=== PATIENT | female | born 1965 | race Caucasian/White ===

== ENCOUNTER 2017-09-05 06:28 | Inpatient (IN) ==
--- NOTE | 2017-09-05 07:17 | Emergency Department Note ---
Disposition Clinical Impression: Anxiety Disposition: Admitted As Inpatient Condition: Fair Referrals: Crescencio Fairbanks MD [Primary Care Provider] - Psych HPI - General Chief Complaint: ED Psychiatric Symptoms Stated Complaint: Anxiety Time Seen by Provider: 09/05/17 06:43 Source: patient Mode of arrival: private vehicle Limitations: no limitations Nursing Notes Reviewed: Yes Vital Signs Reviewed: Yes - History of Present Illness Pt complaint: anxiety, other ("Feeling desperate") Onset (ago): week(s) Duration: constant, getting worse History of similar episodes: Yes Improves with: medication (neurontin) Worsens with: none Context: other (patient feels that neurontin helps with her anxiety. She self d/ c'd this med a few weeks ago and is having "panic attacks".) Alleged intoxication: No Associated Psychiatric Symptoms: suicidal ideation, anxiety Associated symptoms: Reports: insomnia, other (anorexia). Denies: confusion, headache, shortness of breath, nausea, vomiting, syncope Traumatic symptoms: denies traumatic injury Treatments prior to arrival: none Self harm or harm to others: admits thoughts of self harm (Patient states "I feel desperate and I just want it to be over" when asked if she has any thoughts of hurting herself.), denies having a plan - Related Data Allergies Allergy/AdvReac Type Severity Reaction Status Date / Time No Known Allergies Allergy Verified 09/05/17 06:39 All systems ED: reviewed and negative except as stated. Review of Systems: As Per HPI Constitutional: Denies: fever, chills, weakness Eyes: Denies: eye pain, eye discharge, vision change Cardiovascular: Denies: chest pain, palpitations Respiratory: Denies: dyspnea Gastrointestinal: Denies: abdominal pain, nausea, vomiting Neurological: Denies: headache, weakness, confusion Psychiatric: Reports: as per HPI, anxiety Past Medical History - Past Medical History Attestation: Yes The following information was validated with the patient. Source: patient, nursing notes reviewed Medical history: Reports: no medical history Psychiatric history: Reports: anxiety, panic disorder - Social History Smoking Status: Current every day smoker Alcohol use: Reports: none Drug use: Reports: none Physical Exam - General Limitations: no limitations General appearance: alert, anxious, in distress - Head Head exam: atraumatic, normocephalic, normal inspection - Eye Eye exam: Present: normal appearance, PERRL. Absent: scleral icterus, conjunctival injection, periorbital swelling - ENT ENT exam: normal exam, normal oropharynx, mucous membranes moist - Neck Neck exam: Present: normal inspection, full ROM, trachea midline. Absent: meningismus - Chest Chest inspection: Present: normal inspection, symmetric chest wall rise - Respiratory Respiratory exam: Present: normal lung sounds bilaterally. Absent: respiratory distress - Cardiovascular Cardiovascular exam: Present: regular rate, normal rhythm, normal heart sounds - Extremities Exam Extremities exam: Present: normal inspection - Neurological Exam Neurological exam: Present: alert, oriented X3, CN II-XII intact, normal gait - Psychiatric Psychiatric exam: Present: normal affect, anxious - Skin Skin exam: Present: warm, dry, intact, normal color Course Course Narrative: Patient presents for evaluation of anxiety and panic attack. She has a history of anxiety since she was very young. She does not currently see a psychiatrist or mental health counselor. She states that she has been prescribed Neurontin and that it has helped with her anxiety. She describes an event where she was arrested for impaired driving and this impairment was attributed to Neurontin. She feels that she was labeled a "drug addict." She stopped taking the Neurontin around Nena time. She has had worsening anxiety since then. She describes having numerous panic attacks over the past two weeks. She also describes symptoms concerning for depression such as insomnia, anorexia, lack of attention to hygiene, and inability to go to work. When asked if she has had thoughts of hurting herself or others. She states that she would not hurt anyone else. When asked again if she has thoughts of hurting herself. She states, "I just wanted to be over and I am desperate." At this point, suicide precautions were implemented. Patient was admitted to room eight. Labs have been ordered. Patient currently appears to be stable with normal vitals. There was a significant delay in lab results. Per lab, this was due to the new equipment in the lab. Once the results were available, 1A was consulted. They had to call a nurse in from home. Patient was evaluated by the one a nurse. The nurse consulted with the psychiatrist. They recommend that the patient be sent home with outpatient psychiatric services resources a prescription for Zoloft 50 mg daily and a prescription for hydroxyzine 25 mg 3 times a day when necessary. These prescriptions have been provided. Just prior to discharge. Patient told the nurse that she was afraid to go home because her was going to be very angry with her. Social work was involved. drum worker evaluated the patient and has contacted the patient advocate for assistance. Pending resolution of this potential conflict, patient will be discharged to home as previously recommended by one a psychiatrist. Vital Signs Temperature 97.5 F L 09/05/17 06:36 Pulse Rate 94 09/05/17 06:36 Respiratory Rate 20 09/05/17 06:36 Blood Pressure 138/68 09/05/17 06:36 O2 Sat by Pulse Oximetry 99 09/05/17 06:36 Temperature 98.5 F 09/05/17 11:53 Pulse Rate 132 09/05/17 11:53 Respiratory Rate 22 09/05/17 11:53 Blood Pressure 124/61 09/05/17 11:53 O2 Sat by Pulse Oximetry 96 09/05/17 11:53 Oxygen Delivery Oxygen Delivery Room Air Psych - Lab Data Lab results reviewed: Yes I reviewed the patient's lab results. Lab results narrative: Laboratory Last Values WBC 9.7 K/mcL (4.3-11.1) 09/05/17 07:45 RBC 4.91 M/mcL (3.82-4.97) 09/05/17 07:45 Hgb 14.7 g/dL (11.5-15.4) 09/05/17 07:45 Hct 44.0 % (35.3-44.9) 09/05/17 07:45 MCV 89.6 fL (83.0-100.0) 09/05/17 07:45 MCH 29.9 pg (28.0-33.3) 09/05/17 07:45 MCHC 33.4 g/dL (31.6-35.5) 09/05/17 07:45 RDW 12.9 % (11.5-14.5) 09/05/17 07:45 Plt Count 349 K/mcL (140-400) 09/05/17 07:45 MPV 10.3 fL (9.4-12.4) 09/05/17 07:45 Immature Gran % 0.3 % (0-4) 09/05/17 07:45 Seg Neutrophils % 74.5 % 09/05/17 07:45 Lymphocytes % 20.0 % 09/05/17 07:45 Monocytes % 4.2 % 09/05/17 07:45 Eosinophils % 0.4 % 09/05/17 07:45 Basophils % 0.6 % 09/05/17 07:45 Neutrophils # 7.2 K/mcL (1.6-8.9) 09/05/17 07:45 Lymphocytes # 1.9 K/mcL (0.6-4.6) 09/05/17 07:45 Monocytes # 0.4 K/mcL (0.0-1.3) 09/05/17 07:45 Eosinophils # 0.0 K/mcL (0.0-0.6) 09/05/17 07:45 Basophils # 0.1 K/mcL (0.0-0.2) 09/05/17 07:45 Sodium 138 mEq/L (136-145) 09/05/17 07:45 Potassium 3.7 mEq/L (3.5-5.1) 09/05/17 07:45 Chloride 105 mEq/L (98-107) 09/05/17 07:45 Carbon Dioxide 21 mEq/L (23-29) L 09/05/17 07:45 BUN 11 mg/dL (6-20) 09/05/17 07:45 Creatinine 0.65 mg/dL (0.60-1.20) 09/05/17 07:45 Est GFR ( Amer) > 60 (> 60) 09/05/17 07:45 Est GFR (Non-Af Amer) > 60 (> 60) 09/05/17 07:45 BUN/Creatinine Ratio 17 (6-26) 09/05/17 07:45 Glucose 94 mg/dL (70-105) 09/05/17 07:45 Calculated Osmolality 285 (280-300) 09/05/17 07:45 Calcium 9.3 mg/dL (8.6-10.3) 09/05/17 07:45 TSH 1.037 mcIU/mL (0.340-5.600) 09/05/17 07:45 Urine Color Yellow (Yellow) 09/05/17 07:35 Urine Clarity Clear (Clear) 09/05/17 07:35 Urine pH 6.0 pH Units (5.0-8.0) 09/05/17 07:35 Ur Specific [place] 1.022 (1.010-1.025) 09/05/17 07:35 Urine Protein Negative mg/dL (Neg-Trace) 09/05/17 07:35 Urine Glucose (UA) Normal mg/dL (Normal) 09/05/17 07:35 Urine Ketones 15 mg/dL (Negative) H 09/05/17 07:35 Urine Blood Negative (Negative) 09/05/17 07:35 Urine Nitrite Negative (Negative) 09/05/17 07:35 Urine Bilirubin Negative (Negative) 09/05/17 07:35 Urine Urobilinogen Normal mg/dL (Normal) 09/05/17 07:35 Ur Leukocyte Esterase Negative (Negative) 09/05/17 07:35 Salicylates < 5.0 mg/dL (15.0-30.0) L 09/05/17 07:45 Urine Opiates Screen Negative ng/mL (Uorqsi=705) 09/05/17 07:35 Acetaminophen < 1.0 mcg/mL (10-30) L 09/05/17 07:45 Ur Barbiturates Screen Negative ng/mL (Hmoyqy=743) 09/05/17 07:35 Ur Phencyclidine Scrn Negative ng/mL (Cutoff=25) 09/05/17 07:35 Ur Amphetamines Screen Negative ng/mL (Ndnwfc=0011) 09/05/17 07:35 U Benzodiazepines Scrn Negative ng/mL (Buaide=598) 09/05/17 07:35 Urine Cocaine Screen Negative ng/mL (Cutoff= 300) 09/05/17 07:35 U Marijuana (THC) Screen Positive ng/mL (Cutoff = 50) H 09/05/17 07:35 Ethyl Alcohol < 10 mg/dL (0-10) 09/05/17 07:45 Result diagrams: 09/05/17 07:45 09/05/17 07:45 Lab Results 09/05/17 09/05/17 09/05/17 Range/Units 07:35 07:35 07:45 WBC 9.7 (4.3-11.1) K/mcL RBC 4.91 (3.82-4.97) M/mcL Hgb 14.7 (11.5-15.4) g/dL Hct 44.0 (35.3-44.9) % MCV 89.6 (83.0-100.0) fL MCH 29.9 (28.0-33.3) pg MCHC 33.4 (31.6-35.5) g/dL RDW 12.9 (11.5-14.5) % Plt Count 349 (140-400) K/mcL MPV 10.3 (9.4-12.4) fL Immature Gran % 0.3 (0-4) % Seg Neutrophils % 74.5 % Lymphocytes % 20.0 % Monocytes % 4.2 % Eosinophils % 0.4 % Basophils % 0.6 % Neutrophils # 7.2 (1.6-8.9) K/mcL Lymphocytes # 1.9 (0.6-4.6) K/mcL Monocytes # 0.4 (0.0-1.3) K/mcL Eosinophils # 0.0 (0.0-0.6) K/mcL Basophils # 0.1 (0.0-0.2) K/mcL Sodium (136-145) mEq/L Potassium (3.5-5.1) mEq/L Chloride (98-107) mEq/L Carbon Dioxide (23-29) mEq/L BUN (6-20) mg/dL Creatinine (0.60-1.20) mg/dL Est GFR ( Amer) (> 60) Est GFR (Non-Af Amer) (> 60) BUN/Creatinine Ratio (6-26) Glucose (70-105) mg/dL Calculated Osmolality (280-300) Calcium (8.6-10.3) mg/dL TSH (0.340-5.600) mcIU/mL Urine Color Yellow (Yellow) Urine Clarity Clear (Clear) Urine pH 6.0 (5.0-8.0) pH Units Ur Specific [place] 1.022 (1.010-1.025) Urine Protein Negative (Neg-Trace) mg/dL Urine Glucose (UA) Normal (Normal) mg/dL Urine Ketones 15 H (Negative) mg/dL Urine Blood Negative (Negative) Urine Nitrite Negative (Negative) Urine Bilirubin Negative (Negative) Urine Urobilinogen Normal (Normal) mg/dL Ur Leukocyte Esterase Negative (Negative) Salicylates (15.0-30.0) mg/dL Urine Opiates Screen Negative (Ycijde=955) ng/mL Acetaminophen (10-30) mcg/mL Ur Barbiturates Screen Negative (Xwmery=280) ng/mL Ur Phencyclidine Scrn Negative (Cutoff=25) ng/mL Ur Amphetamines Screen Negative (Mrozwi=5582) ng/mL U Benzodiazepines Scrn Negative (Mdzfae=136) ng/mL Urine Cocaine Screen Negative (Cutoff= 300) ng/mL U Marijuana (THC) Screen Positive H (Cutoff = 50) ng/mL Ethyl Alcohol (0-10) mg/dL 09/05/17 Range/Units 07:45 WBC (4.3-11.1) K/mcL RBC (3.82-4.97) M/mcL Hgb (11.5-15.4) g/dL Hct (35.3-44.9) % MCV (83.0-100.0) fL MCH (28.0-33.3) pg MCHC (31.6-35.5) g/dL RDW (11.5-14.5) % Plt Count (140-400) K/mcL MPV (9.4-12.4) fL Immature Gran % (0-4) % Seg Neutrophils % % Lymphocytes % % Monocytes % % Eosinophils % % Basophils % % Neutrophils # (1.6-8.9) K/mcL Lymphocytes # (0.6-4.6) K/mcL Monocytes # (0.0-1.3) K/mcL Eosinophils # (0.0-0.6) K/mcL Basophils # (0.0-0.2) K/mcL Sodium 138 (136-145) mEq/L Potassium 3.7 (3.5-5.1) mEq/L Chloride 105 (98-107) mEq/L Carbon Dioxide 21 L (23-29) mEq/L BUN 11 (6-20) mg/dL Creatinine 0.65 (0.60-1.20) mg/dL Est GFR ( Amer) > 60 (> 60) Est GFR (Non-Af Amer) > 60 (> 60) BUN/Creatinine Ratio 17 (6-26) Glucose 94 (70-105) mg/dL Calculated Osmolality 285 (280-300) Calcium 9.3 (8.6-10.3) mg/dL TSH 1.037 (0.340-5.600) mcIU/mL Urine Color (Yellow) Urine Clarity (Clear) Urine pH (5.0-8.0) pH Units Ur Specific [place] (1.010-1.025) Urine Protein (Neg-Trace) mg/dL Urine Glucose (UA) (Normal) mg/dL Urine Ketones (Negative) mg/dL Urine Blood (Negative) Urine Nitrite (Negative) Urine Bilirubin (Negative) Urine Urobilinogen (Normal) mg/dL Ur Leukocyte Esterase (Negative) Salicylates < 5.0 L (15.0-30.0) mg/dL Urine Opiates Screen (Dkzbhc=186) ng/mL Acetaminophen < 1.0 L (10-30) mcg/mL Ur Barbiturates Screen (Szhqon=064) ng/mL Ur Phencyclidine Scrn (Cutoff=25) ng/mL Ur Amphetamines Screen (Hdrjlv=0264) ng/mL U Benzodiazepines Scrn (Cnpxhp=446) ng/mL Urine Cocaine Screen (Cutoff= 300) ng/mL U Marijuana (THC) Screen (Cutoff = 50) ng/mL Ethyl Alcohol < 10 (0-10) mg/dL Psychiatric Medical Clearance - Medical Clearance Checklist Does the patient have a NEW psychiatric condition?: No Any abnormalities indicating possible medical illness?: No Any history of medical issues?: No Medical History: Anxiety (Acute) No Social History Section defined Any abnormal vital signs prior to transfer?: No Current Vitals: Last Vital Signs Temp 98.5 F 09/05/17 11:53 Pulse 132 09/05/17 11:53 Resp 22 09/05/17 11:53 BP 124/61 09/05/17 11:53 Pulse Ox 96 09/05/17 11:53 Is the patient intoxicated or cognitively impaired?: No Psychiatric Lab Panel: Drug Levels and Toxicity 09/05/17 09/05/17 07:35 07:45 Urine Opiates Screen Negative Acetaminophen < 1.0 L Ur Barbiturates Screen Negative Ur Phencyclidine Scrn Negative Ur Amphetamines Screen Negative U Benzodiazepines Scrn Negative Urine Cocaine Screen Negative U Marijuana (THC) Screen Positive H Ethyl Alcohol < 10 Any abnormalities on the physical exam?: No Any abnormal labs?: No Abnormal Labs: Abnormal lab results Carbon Dioxide 21 mEq/L (23-29) L 09/05/17 07:45 Urine Ketones 15 mg/dL (Negative) H 09/05/17 07:35 Salicylates < 5.0 mg/dL (15.0-30.0) L 09/05/17 07:45 Acetaminophen < 1.0 mcg/mL (10-30) L 09/05/17 07:45 U Marijuana (THC) Screen Positive ng/mL (Cutoff = 50) H 09/05/17 07:35 Does the patient require durable medical equiptment?: No Is the patient ambulatory?: Yes Is the patient a fall risk?: No Has the patient been medically cleared?: Yes Any acute medical condition require Tx prior to transfer?: No Statement of Medical Clearance: I have evaluated the patient, reviewed diagnostic information, and certify that the patient's medical condition is sufficiently stable that transfer to the psychiatric unit does not pose a significant risk of deterioration. Attestation Statement - Attestation Attestation: I, Ramakrishna Gray DO have provided [id number] time during the care of this patient. Detailed review the presentation, symptoms, medical history were discussed and reviewed with the mid-level provider Nataliya Michele PA-C/[employer] OPERATOR. Medical intervention labs and imaging studies were reviewed in detail. See full documentation of physical exam and course of care in the mid-level provider 's note. I agree with the determined course of care, medical intervention and disposition put forth by the mid-level provider. See below documentation for changes or alterations in documentation. . 52-year-old female presents to emergency room for evaluation of anxiety. Patient was seen and evaluated and medically cleared by the mid-level provider. Psychiatric team evaluated and recommended admission at this time. Patient has no other concerning findings on laboratory workup her physical exam. Patient will be admitted for evaluation. My only involvement was with the admission process of this patient. See detailed documentation of the physical exam, medical intervention, medical decision-making and disposition in the mid- level provider's note
[2017-09-05 07:47] LABS: Bilirubin,Urine Negative (Negative); Blood,Urine Negative (Negative); Clarity,Urine Clear (Clear); Color,Urine Yellow (Yellow); Glucose,Urine (UA) Normal (Normal); Ketones,Urine 15 mg/dL (Negative); Leukocyte Esterase,Urine Negative (Negative); Nitrite,Urine Negative (Negative); Protein,Urine Negative (Neg-Trace); Specific Gravity,Urine 1.022 (1.010-1.025); Urobilinogen,Urine Normal (Normal)
[2017-09-05 07:51] LABS: Amphetamine Screen,Urine Negative ng/mL (Cutoff=1000); Barbiturate Screen,Urine Negative ng/mL (Cutoff=200); Benzodiazepines Screen,Urine Negative ng/mL (Cutoff=200); Cannabinoid Screen,Urine Positive ng/mL (Cutoff = 50); Cocaine Screen,Urine Negative ng/mL (Cutoff= 300); Opiate Screen,Urine Negative ng/mL (Cutoff=300); Phencyclidine Screen,Urine Negative ng/mL (Cutoff=25)
[2017-09-05 07:55] LABS: Basophils # 0.1 K/mcL (0.0-0.2); Basophils % 0.6 %; Eosinophils % 0.4 %; Hemoglobin 14.7 g/dL (11.5-15.4); Immature Granulocytes % 0.3 % (0-4); Lymphocytes # 1.9 K/mcL (0.6-4.6); Mean Corpuscular HGB Conc 33.4 g/dL (31.6-35.5); Mean Corpuscular Hemoglobin 29.9 pg (28.0-33.3); Mean Corpuscular Volume 89.6 fL (83.0-100.0); Mean Platelet Volume 10.3 fL (9.4-12.4); Monocytes # 0.4 K/mcL (0.0-1.3); Monocytes % 4.2 %; Neutrophils # 7.2 K/mcL (1.6-8.9); Platelet Count 349 K/mcL (140-400); Red Blood Count 4.91 M/mcL (3.82-4.97); Red Cell Distribution Width 12.9 % (11.5-14.5); Segmented Neutrophils % 74.5 %
[2017-09-05 08:26] LABS: Thyroid Stimulating Hormone 1.037 mcIU/mL (0.340-5.600)
[2017-09-05 08:31] LABS: Acetaminophen < 1.0 mcg/mL (10-30); Ethanol < 10 mg/dL (0-10); Salicylate < 5.0 mg/dL (15.0-30.0)
[2017-09-05 08:40] LABS: BUN/Creatinine Ratio 17 (6-26); Blood Urea Nitrogen 11 mg/dL (6-20); Calcium 9.3 mg/dL (8.6-10.3); Carbon Dioxide 21 mEq/L (23-29); Chloride 105 mEq/L (98-107); Glucose 94 mg/dL (70-105); Osmolality,Calculated 285 (280-300); Potassium 3.7 mEq/L (3.5-5.1); Sodium 138 mEq/L (136-145); eGFR For African Americans > 60 (> 60); eGFR For Non-African Americans > 60 (> 60)
[2017-09-05] MEDS ORDERED: hydrOXYzine pamoate 25 MG CAPSULE PO ONE (08:45)
[2017-09-05] MEDS ORDERED: Acetaminophen 325 MG TABLET PO PRN (16:00)
[2017-09-05] MEDS ORDERED: Mag Hydrox/Al Hydrox/Simeth 30 ML UDC PO PRN (16:00)
[2017-09-05] MEDS ORDERED: MOM Conc 10 ML UD.LIQ PO PRN (16:00)
[2017-09-05] MEDS ORDERED: Haloperidol Lactate 5 MG/ML VIAL IM PRN (16:00)
[2017-09-05] MEDS ORDERED: *HR* LORazepam 1 MG TABLET PO PRN (16:00)
[2017-09-05] MEDS ORDERED: *HR* LORazepam 2 MG/ML VIAL IM PRN (16:00)
[2017-09-05] MEDS: traZODone 50 MG TABLET PO PRN (20:35)
[2017-09-06] MEDS: hydrOXYzine pamoate 25 MG CAPSULE PO PRN ×3 (01:17→15:16)
--- NOTE | 2017-09-06 09:33 | Psychiatry History & Physical ---
Date of Encounter: 09/06/17 Time of Encounter: 09:26 History of Present Illness Patient Stated Chief Complaint: suicidal ideation Medicare Admission Attestation: For traditional Medicare patients the provided hospital inpatient services are reasonable and necessary and in the case of services not specified as inpatient -only under 42 CFR 419.22 (n), that they are appropriately provided as inpatient services in accordance 42 CFR 412.3. For Critical [facility] the patient may reasonably be expected to be discharged or transferred to a hospital within 96 hours after admission to the Critical [facility]. Admitted From: Home Plans for Post Hospital Care: Home History of Present Illness: Ms. Fitzgerald is a 52 year old female who was admitted secondary to SI, anxiety, and depression. Has been dealing with anxiety and depression most of her life. Lately anxiety has worsened to the point that she is feeling suicidal. No history of suicide attempts. No history of inpatient treatment. Has never seen a Psychiatrist or been in counseling. PCP prescribed Xanax for 25 years but she came off of it in 2009 due to increased tolerance. Was taking 3mg a day at that time. 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 No other med trials. She has been started on Zoloft and Vistaril here. Willing to be linked with services in the community. Financial stressors. has been out of work. She works as an [employer] but has been missing days due to her anxiety. In the ER was not supportive of her getting help so there may be some conflict there. Client states they spoke on the phone last night and he was more supportive. States they have been together for 22 years. Client is physically healthy. No substance abuse issues beyond occasional THC. Past Med Surg Social Fam HX - Past Medical History Medical history: no medical history - Past Psychiatric History Psychiatric history: Reports: anxiety, depression Family psychiatric history: Yes Family Psychiatric History Details: mother and father both had anxiety Family History of Suicide: Unknown - Social History Smoking Status: Current every day smoker Smokeless Tobacco Status: No Alcohol use: none Drug use: none - Family History Father History Unknown: Yes Adopted: [place]: David Mccabe Family Member Ethnicity: Non- Living Status: Age at : 66 Hx Family Cardiac Disorders: Yes Hx Family Respiratory Disorders: Yes Hx Family Cancer: Yes Hx Family GI Disorders: No Hx Family Endocrine Disorder: No Hx Family Musculoskeletal Disorders: No Hx Family Neuromuscular Disorders: No Hx Family Neurologic Disorders: No Hx Family HEENT Disorders: No Hx Family Autoimmune Disorders: No Hx Family Reproductive Disorders: No Hx Family Psychosocial Disorders: No Hx Family Medical Disorders: No Medications & Allergies No Known Home Drugs 09/05/17 [History] 3 Allergy/AdvReac Type Severity Reaction Status Date / Time No Known Allergies Allergy Verified 09/05/17 06:39 Review of Systems Constitutional: Denies: fever, chills, weakness, weight change Eyes: Denies: eye pain, vision change Ears, Nose, Throat: Denies: ear pain, throat pain, dental pain, hearing loss, congestion Cardiovascular: Denies: chest pain, palpitations, dyspnea on exertion Respiratory: Denies: cough, dyspnea, wheezes Gastrointestinal: Denies: abdominal pain, nausea, vomiting, diarrhea, constipation Genitourinary male: Denies: urgency, dysuria, frequency, genital lesions Genitourinary female: Denies: urgency, dysuria, frequency, abnormal menses, dyspareunia Musculoskeletal: Denies: joint swelling, joint pain Integumentary: Denies: rash, lesions, pruritus Neurological: Denies: headache, weakness, numbness, memory loss Endocrine: Denies: fatigue, heat or cold intolerance Hematologic/Lymphatic: Denies: easy bruising, lymphadenopathy Allergic/Immunologic: Denies: urticaria, itchy eyes Mental Status Exam Patient orientation: Yes Person, Yes Time, Yes Place Level of alertness: Alert Patient appearance: Appropriate, Well Groomed Behavior: calm, cooperative Psychomotor activity: Normal Eye contact: Maintains Eye Contact Mood description: Depressed, Anxious Affect description: congruent with mood Speech pattern: Normal rate, Normal rhythm, Normal tone Speech volume: Normal Thought process: Linear Thought content: Yes Suicidal ideation, No Homicidal ideation, No Overt delusions Perceptual disturbances: No Auditory hallucinations, No Visual hallucinations Attention span: Capable of Focused Attention Memory description: Grossly Intact Patient reliability: Reliable Historian Intelligence estimate: Average Judgment: Fair Insight: Partial Exam - HEENT Head exam IM: Present: atraumatic Eye exam IM: Present: EOMI - Neurological Neurological exam IM: Present: alert, oriented X3 - Respiratory Respiratory exam IM: Present: CTAB - GI/Abdominal GI/Abdominal exam IM: Present: normal bowel sounds - Extremities Extremities exam IM: Present: full ROM - Skin Skin exam IM: Present: normal color Results - Vital Signs Vital signs: Temp Pulse Resp BP Pulse Ox 97.9 F 83 16 118/72 95 09/06/17 09:00 09/06/17 09:00 09/06/17 09:00 09/06/17 09:00 09/05/17 13:43 - Labs Labs: Laboratory Last Values WBC 9.7 K/mcL (4.3-11.1) 09/05/17 07:45 RBC 4.91 M/mcL (3.82-4.97) 09/05/17 07:45 Hgb 14.7 g/dL (11.5-15.4) 09/05/17 07:45 Hct 44.0 % (35.3-44.9) 09/05/17 07:45 MCV 89.6 fL (83.0-100.0) 09/05/17 07:45 MCH 29.9 pg (28.0-33.3) 09/05/17 07:45 MCHC 33.4 g/dL (31.6-35.5) 09/05/17 07:45 RDW 12.9 % (11.5-14.5) 09/05/17 07:45 Plt Count 349 K/mcL (140-400) 09/05/17 07:45 MPV 10.3 fL (9.4-12.4) 09/05/17 07:45 Immature Gran % 0.3 % (0-4) 09/05/17 07:45 Seg Neutrophils % 74.5 % 09/05/17 07:45 Lymphocytes % 20.0 % 09/05/17 07:45 Monocytes % 4.2 % 09/05/17 07:45 Eosinophils % 0.4 % 09/05/17 07:45 Basophils % 0.6 % 09/05/17 07:45 Neutrophils # 7.2 K/mcL (1.6-8.9) 09/05/17 07:45 Lymphocytes # 1.9 K/mcL (0.6-4.6) 09/05/17 07:45 Monocytes # 0.4 K/mcL (0.0-1.3) 09/05/17 07:45 Eosinophils # 0.0 K/mcL (0.0-0.6) 09/05/17 07:45 Basophils # 0.1 K/mcL (0.0-0.2) 09/05/17 07:45 Sodium 138 mEq/L (136-145) 09/05/17 07:45 Potassium 3.7 mEq/L (3.5-5.1) 09/05/17 07:45 Chloride 105 mEq/L (98-107) 09/05/17 07:45 Carbon Dioxide 21 mEq/L (23-29) L 09/05/17 07:45 BUN 11 mg/dL (6-20) 09/05/17 07:45 Creatinine 0.65 mg/dL (0.60-1.20) 09/05/17 07:45 Est GFR ( Amer) > 60 (> 60) 09/05/17 07:45 Est GFR (Non-Af Amer) > 60 (> 60) 09/05/17 07:45 BUN/Creatinine Ratio 17 (6-26) 09/05/17 07:45 Glucose 94 mg/dL (70-105) 09/05/17 07:45 Calculated Osmolality 285 (280-300) 09/05/17 07:45 Calcium 9.3 mg/dL (8.6-10.3) 09/05/17 07:45 TSH 1.037 mcIU/mL (0.340-5.600) 09/05/17 07:45 Urine Color Yellow (Yellow) 09/05/17 07:35 Urine Clarity Clear (Clear) 09/05/17 07:35 Urine pH 6.0 pH Units (5.0-8.0) 09/05/17 07:35 Ur Specific [place] 1.022 (1.010-1.025) 09/05/17 07:35 Urine Protein Negative mg/dL (Neg-Trace) 09/05/17 07:35 Urine Glucose (UA) Normal mg/dL (Normal) 09/05/17 07:35 Urine Ketones 15 mg/dL (Negative) H 09/05/17 07:35 Urine Blood Negative (Negative) 09/05/17 07:35 Urine Nitrite Negative (Negative) 09/05/17 07:35 Urine Bilirubin Negative (Negative) 09/05/17 07:35 Urine Urobilinogen Normal mg/dL (Normal) 09/05/17 07:35 Ur Leukocyte Esterase Negative (Negative) 09/05/17 07:35 Salicylates < 5.0 mg/dL (15.0-30.0) L 09/05/17 07:45 Urine Opiates Screen Negative ng/mL (Waxbvc=619) 09/05/17 07:35 Acetaminophen < 1.0 mcg/mL (10-30) L 09/05/17 07:45 Ur Barbiturates Screen Negative ng/mL (Vcnehk=132) 09/05/17 07:35 Ur Phencyclidine Scrn Negative ng/mL (Cutoff=25) 09/05/17 07:35 Ur Amphetamines Screen Negative ng/mL (Syoaaa=7248) 09/05/17 07:35 U Benzodiazepines Scrn Negative ng/mL (Trdlpi=938) 09/05/17 07:35 Urine Cocaine Screen Negative ng/mL (Cutoff= 300) 09/05/17 07:35 U Marijuana (THC) Screen Positive ng/mL (Cutoff = 50) H 09/05/17 07:35 Ethyl Alcohol < 10 mg/dL (0-10) 09/05/17 07:45 Assessment and Plan (1) Generalized anxiety disorder Current visit: Yes Status: Acute Plan: Admit inpatient for safety and stabilization, Close observation, Suicide Precautions per unit protocol, Encourage participation in unit milieu, Group Therapy, Monitor sleep, Monitor appetite Risks, benefits, side effects, alternatives discussed w/pt: Yes Patient agreeable to treatment: Yes Plans for Post Hospital Care: Home Estimated Length of Stay (Days): 3 (2) Major depressive disorder without psychotic features Current visit: Yes Status: Acute Plan: Admit inpatient for safety and stabilization, Close observation, Suicide Precautions per unit protocol, Encourage participation in unit milieu, Group Therapy, Monitor sleep, Monitor appetite Risks, benefits, side effects, alternatives discussed w/pt: Yes Patient agreeable to treatment: Yes Plans for Post Hospital Care: Home Estimated Length of Stay (Days): 3 Qualifiers: Major depression recurrence: recurrent Active/Remission status: currently active Major depression episode severity: severe Qualified Code(s): F33.2 - Major depressive disorder, recurrent severe without psychotic features
[2017-09-06] MEDS: traZODone 50 MG TABLET PO PRN (20:07)
[2017-09-06] MEDS: Melatonin 3 MG TABLET PO PRN (20:07)
[2017-09-07] MEDS: hydrOXYzine pamoate 25 MG CAPSULE PO PRN ×2 (01:05→12:44)
--- NOTE | 2017-09-07 10:27 | Psychiatry Progress Note ---
Date of Encounter: 09/07/17 Time of Encounter: 10:24 Subjective Interval history: Client reports she is feeling much better. Zoloft seems to be helping her depression and anxiety. Denies SI. Feeling more positive and hopeful for the future. However, still not sleeping. Up and down all night even with the addition of Melatonin. Would like to see her sleep improve since a lack of sleep will undoubtedly cause a return of mood and anxiety symptoms. Discussed Seroquel and client is agreeable. Seroquel is also a mood agent so she may get some additional benefit for depression as well. Needs linked with outpatient services. Once this is done tomorrow client can likely be discharged home. Review of Systems Constitutional: Denies: fever, chills, weakness, weight change Eyes: Denies: eye pain, vision change Ears, Nose, Throat: Denies: ear pain, throat pain, dental pain, hearing loss, congestion Cardiovascular: Denies: chest pain, palpitations, dyspnea on exertion Respiratory: Denies: cough, dyspnea, wheezes Gastrointestinal: Denies: abdominal pain, nausea, vomiting, diarrhea, constipation Musculoskeletal: Denies: joint swelling, joint pain Neurological: Denies: headache, weakness, numbness, memory loss Objective: Exam Patient orientation: Yes Person, Yes Time, Yes Place Level of alertness: Alert Patient appearance: Appropriate, Well Groomed Behavior: calm, cooperative Psychomotor activity: Normal Eye contact: Maintains Eye Contact Mood description: Anxious Affect description: congruent with mood Speech pattern: Normal rate, Normal rhythm, Normal tone Speech volume: Normal Thought process: Linear, Goal Oriented Thought content: No Suicidal ideation, No Homicidal ideation, No Overt delusions Perceptual disturbances: No Auditory hallucinations, No Visual hallucinations Judgment: Fair Insight: Partial Results - Vital Signs Vital Signs: Temp Pulse Resp BP Pulse Ox 91 F L 74 16 134/82 95 09/07/17 09:00 09/07/17 09:00 09/07/17 09:00 09/07/17 09:00 09/05/17 13:43 Assessment and Plan (1) Generalized anxiety disorder Current visit: Yes Status: Acute Plan: Continue hospitalization, Close observation, Suicide Precautions per unit protocol, Encourage participation in unit milieu, Group Therapy, Monitor sleep, Monitor appetite Risks, benefits, side effects, alternatives discussed w/pt: Yes Patient agreeable to treatment: Yes (2) Major depressive disorder without psychotic features Current visit: Yes Status: Acute Plan: Continue hospitalization, Close observation, Suicide Precautions per unit protocol, Encourage participation in unit milieu, Group Therapy, Monitor sleep, Monitor appetite Risks, benefits, side effects, alternatives discussed w/pt: Yes Patient agreeable to treatment: Yes Qualifiers: Major depression recurrence: recurrent Active/Remission status: currently active Major depression episode severity: severe Qualified Code(s): F33.2 - Major depressive disorder, recurrent severe without psychotic features Consult Discharge Plan - Plan Referrals: Crescencio Fairbanks MD [Primary Care Provider] -
[2017-09-07] MEDS: Melatonin 3 MG TABLET PO PRN (21:17)
[2017-09-08 08:48] VITALS: BP 132/80
--- NOTE | 2017-09-08 10:02 | Discharge Summary ---
Date of Encounter: 09/08/17 Time of Encounter: 08:40 Diagnosis - Discharge Diagnosis (1) Major depressive disorder without psychotic features Status: Acute Qualifiers: Major depression recurrence: recurrent Active/Remission status: currently active Major depression episode severity: severe Qualified Code(s): F33.2 - Major depressive disorder, recurrent severe without psychotic features (2) Generalized anxiety disorder Status: Acute Medications - Discharge Medications Prescriptions: hydrOXYzine pamoate [HydrOXYzine Pamoate] 50 mg PO TID PRN #90 capsule PRN Reason: Anxiety Quetiapine Fumarate [Seroquel] 100 mg PO HS #120 tablet Sertraline [Zoloft] 100 mg PO DAILY #60 tablet Melatonin 3 mg PO HS PRN tablet 09/08/17 [Rx] Quetiapine Fumarate [Seroquel] 100 mg PO HS #120 tablet 09/08/17 [Rx] Sertraline [Zoloft] 100 mg PO DAILY #60 tablet 09/08/17 [Rx] hydrOXYzine pamoate [HydrOXYzine Pamoate] 50 mg PO TID PRN #90 capsule 09/08/17 [Rx] 3 Allergy/AdvReac Type Severity Reaction Status Date / Time No Known Allergies Allergy Verified 09/05/17 06:39 Provider Date of admission: 09/05/17 13:29 Primary care physician: Crescencio Fairbanks MD Discharging clinician: Pavithra Zavala Assessment and Plan - Patient/Caregiver Discharge Instructions Activity: resume usual activities as tolerated Diet: regular diet - Follow up Plan Follow up with: Crescencio Fairbanks MD [Primary Care Provider] - Functional capacity at discharge: independent ambulation Overall status at discharge: Stable Disposition: Home, Self-Care Hospital Course Hospital course: Ms. Fitzgerald is a 52 year old female with a history of depression and anxiety who presented to the hospital with increasing anxiety, low mood and suicidal ideation. She was [facility]. Patient was incorporated into the therapeutic milieu group and individual as well as recreational therapy and she was also psychoeducational materials and supportive therapy. She was placed on suicide and close observation per protocol. Patient was started on Zoloft for her mood and anxiety symptoms. The patient was also reporting significant sleep issues. Throughout the course of the hospital stay her mood and anxiety improved and she was still struggling with sleep. She was finally started on Seroquel and this helped her rest a significant amount. She denied side effects of the Seroquel. Patient was cooperative and pleasant with peers and staff on the unit. At the time of discharge she denied suicidal or homicidal ideation, intent, or plan. She is more hopeful for the future and states that she feels supported by her family. Patient is agreeable to trying therapy as well as further medication titration when she leaves the hospital. She is discharged in stable condition. - Time Spent with Patient Total time spent providing and/or coordinating discharge services: Greater than 30 minutes Quality - Multiple Antipsychotics Patient discharged on 2 or more antipsychotic medications: No Procedures - Procedures Procedures: Medication Management, Crisis Stabilization, Supportive Therapy, Group Therapy, Psychoeducational Therapy Mental Status Exam - Mental Status Exam Patient orientation: Yes Person, Yes Time, Yes Place Level of alertness: Alert Patient appearance: Appropriate Behavior: calm, cooperative Psychomotor activity: Normal Eye contact: Maintains Eye Contact Mood description: Euthymic/stable Affect description: congruent with mood, full range Speech pattern: Normal rate, Normal rhythm, Normal tone Speech Volume: Normal Thought process: Intact, Logical, Goal Oriented Thought Content: No Suicidal ideation, No Homicidal ideation, No Overt delusions Perceptual Disturbances: No Auditory hallucinations, No Visual hallucinations Judgment: Limited Insight: Partial
== END 2017-09-08 11:34 | disposition home or self-care (01) | DRG 751 ==
LOC: EMEROO 06:28 → SUATTDRO 13:29 → 1ANU 13:29
PROVIDERS: ADMIT Psychiatry & Neurology Psychiatry; ATTEND Student in an Organized Health Care Education/Training Program

== ENCOUNTER 2021-03-28 23:51 | Inpatient (IN) ==
[2021-03-29] MEDS ORDERED: Isovue-370 500 ML BOTTLE IVP ONE (00:55)
[2021-03-29 01:19] LABS: Basophils % 0.1 %; Eosinophils % 0.1 %; Hemoglobin 14.2 g/dL (11.5-15.4); Immature Granulocytes % 0.4 % (0-4); Lymphocytes # 1.2 K/mcL (0.6-4.6); Lymphocytes % 8.5 %; Mean Corpuscular HGB Conc 34.6 g/dL (31.6-35.5); Mean Corpuscular Hemoglobin 30.9 pg (28.0-33.3); Mean Corpuscular Volume 89.3 fL (83.0-100.0); Monocytes # 0.6 K/mcL (0.0-1.3); Monocytes % 4.3 %; Neutrophils # 12.1 K/mcL (1.6-8.9); Platelet Count 143 K/mcL (140-400); Red Blood Count 4.59 M/mcL (3.82-4.97); Segmented Neutrophils % 86.6 %
[2021-03-29 01:27] LABS: INR 1.1; Prothrombin Time 12.4 Seconds (9.4-12.1)
[2021-03-29 02:01] LABS: BUN/Creatinine Ratio 17 (6-26); Blood Urea Nitrogen 33 mg/dL (6-20); Calcium 8.4 mg/dL (8.6-10.3); Carbon Dioxide 25 mEq/L (23-29); Chloride 91 mEq/L (98-107); Glucose 164 mg/dL (70-105); Osmolality,Calculated 275 (280-300); Potassium 4.1 mEq/L (3.5-5.1); Sodium 127 mEq/L (136-145); Troponin I < 0.03 ng/mL (< 0.04); eGFR For African Americans 31 (> 60); eGFR For Non-African Americans 26 (> 60)
[2021-03-29] MEDS ORDERED: 0.9 % Sodium Chloride 1,000 ML IVC ONE ×2 (02:09→03:22)
[2021-03-29 02:24] LABS: Creatine Kinase > 20000 Units/L (30-223)
[2021-03-29 04:05] LABS: Bacteria,Urine Few per hpf (None-Few); Bilirubin,Urine Negative (Negative); Blood,Urine Large (Negative); Clarity,Urine Clear (Clear); Color,Urine Colorless (Yellow); Glucose,Urine (UA) Normal (Normal); Ketones,Urine Negative (Negative); Leukocyte Esterase,Urine Trace (Negative); Mucus,Urine Few per lpf (None-Few); Nitrite,Urine Negative (Negative); PH,Urine 5.5 pH Units (5.0-8.0); Protein,Urine Negative (Neg-Trace); RBC,Urine 0-3 per hpf (0-3); Squamous Epithelial Cell,Urine Few per hpf (None-Few); Urobilinogen,Urine Normal (Normal)
[2021-03-29] MEDS ORDERED: Naloxone 0.4 MG/ML INJ IVP PRN (06:15)
[2021-03-29] MEDS ORDERED: Ondansetron 4 MG/2 ML VIAL IVP PRN (06:15)
[2021-03-29] MEDS: 0.9 % Sodium Chloride 1,000 ML IVC SCH ×2 (06:47→13:12)
[2021-03-29 07:29] LABS: Albumin 3.3 g/dL (3.5-5.7); Albumin/Globulin Ratio 1.4 (1.1-2.2); Bilirubin,Total 0.2 mg/dL (0.3-1.0); Calcium 7.7 mg/dL (8.6-10.3); Globulin 2.4 g/dL (2.4-3.5); Potassium 4.2 mEq/L (3.5-5.1); Total Protein 5.7 g/dL (6.4-8.9)
[2021-03-29 07:43] LABS: Basophils % 0.2 %; Eosinophils % 0.3 %; Hematocrit 36.4 % (35.3-44.9); Hemoglobin 12.7 g/dL (11.5-15.4); Immature Granulocytes % 0.3 % (0-4); Lymphocytes # 1.4 K/mcL (0.6-4.6); Lymphocytes % 12.2 %; Mean Corpuscular HGB Conc 34.9 g/dL (31.6-35.5); Mean Corpuscular Hemoglobin 31.6 pg (28.0-33.3); Mean Corpuscular Volume 90.5 fL (83.0-100.0); Mean Platelet Volume 10.8 fL (9.4-12.4); Monocytes # 0.6 K/mcL (0.0-1.3); Monocytes % 4.9 %; Neutrophils # 9.6 K/mcL (1.6-8.9); Platelet Count 116 K/mcL (140-400); Red Blood Count 4.02 M/mcL (3.82-4.97); Red Cell Distribution Width 13.2 % (11.5-14.5); Segmented Neutrophils % 82.1 %; White Blood Count 11.7 K/mcL (4.3-11.1)
[2021-03-29] MEDS: Acetaminophen 325 MG TABLET PO PRN ×2 (14:24→21:40)
[2021-03-29 17:11] LABS: Chol/HDL Ratio 3.9 (0-4.9)
[2021-03-29] MEDS ORDERED: Gabapentin 300 MG CAPSULE PO PRN (19:20)
[2021-03-30 02:07] LABS: Estimated Average Glucose 140 mg/dl; Hemoglobin A1C 6.5 %
[2021-03-30] MEDS ORDERED: *HR* Enoxaparin 40 MG/0.4 ML SYRINGE SQ SCH (06:00)
[2021-03-30] MEDS ORDERED: 0.9 % Sodium Chloride 1,000 ML IVC SCH (08:15)
[2021-03-30 08:49] VITALS: BP 174/73; PULSE 93; TEMP 98.8; O2SAT 93
[2021-03-30] MEDS ORDERED: Multivit/Ca/Min/Fe/FA 1 TAB TABLET PO SCH (09:00)
[2021-03-30] MEDS ORDERED: Aspirin Enteric Coated 81 MG Tablet PO SCH (09:00)
[2021-03-30] MEDS: Acetaminophen 325 MG TABLET PO PRN (09:12)
== END 2021-03-30 14:45 | disposition left against medical advice (07) | DRG 351 ==
LOC: EMEROOARM 23:51 → 3ANU 23:51 → SUATTDRO 03-29 06:15
PROVIDERS: ADMIT Student in an Organized Health Care Education/Training Program; ATTEND Hospitalist